=== PATIENT | female | born 1970 | race Caucasian/White ===

== ENCOUNTER → 2017-12-30 | Outpatient (CLI) | payer OTHER ==
[~2017-12-30] MED LIST: IOPAMIDOL 370 MG/ML 200 ML INFUS..BTL INJ ONE; SODIUM CHLORIDE 0.9% 50ML 50 ML ONE
[2017-12-30 09:48] LABS: BLOOD UREA NITROGEN 8 mg/dL (7-26); BUN/CREATININE RATIO 8 (6-25); CREATININE, SERUM 0.98 mg/dL (0.57-1.11); EST GLOMERULAR FILTRATION RATE > 60 ML/MIN (60-)
--- NOTE | 2017-12-30 11:11 | Diagnostic Imaging Report ---
PROCEDURE: CT scan of the chest WITH intravenous contrast, using standard protocol. TECHNIQUE: The chest was scanned utilizing a multidetector helical scanner from the lung apex through the level of the adrenal glands after the IV administration of 100 cc of Isovue 370. Coronal and sagittal multiplanar reformations were obtained. COMPARISON: None. INDICATIONS: COUGH FINDINGS: Lines/tubes: None. Lungs and Airways: Trace groundglass opacities in the dependent lower lobes compatible with subsegmental atelectasis. The lungs and airways are otherwise unremarkable without focal abnormality identified. Pleura: No pleural effusion or pneumothorax. Heart and mediastinum: The visualized portions of the thyroid gland are unremarkable. No axillary, hilar, or mediastinal lymphadenopathy. Pulmonary outflow tract is of normal caliber. No ectasia or aneurysmal dilatation of the thoracic aorta. Variant arterial anatomy. 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 Of note, the left vertebral artery also arises directly from the aortic arch, just proximal to the origin of the left subclavian artery. No pericardial effusion. Soft tissues: No focal soft tissue abnormalities. Abdomen: The visualized portions of the liver, gallbladder, spleen, pancreas, and adrenal glands are unremarkable. Bones: No osseous destructive lesions. 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 Otherwise unremarkable CT scan of the chest. Dictated by: Chriss Love M.D. on 12/30/2017 at 11:11 Electronically approved by: Chriss Love M.D. on 12/30/2017 at 11:11
== END ==
LOC: CT 08:52
PROVIDERS: ATTEND Family Medicine
DX: R05 Cough (principal)
CPT/HCPCS: 36415; 71260; 82565; 84520; Q9967